=== PATIENT | male | born 1975 | race Caucasian/White ===

== ENCOUNTER 2016-10-21 15:13 | Emergency (ER) | payer OTHER ==
[2016-10-21 15:19] VITALS: BP 115/78
== END 2016-10-21 16:10 | disposition home or self-care (01) ==
LOC: ED 15:13
DX: S46.222A Laceration of muscle, fascia and tendon of other parts of biceps, left arm, initial encounter (principal); S11.95XA Open bite of unspecified part of neck, initial encounter; J45.909 Unspecified asthma, uncomplicated; S01.95XA Open bite of unspecified part of head, initial encounter; W54.0XXA Bitten by dog, initial encounter; Y93.89 Activity, other specified; Y99.8 Other external cause status; Y92.89 Other specified places as the place of occurrence of the external cause
CPT/HCPCS: 90715